=== PATIENT | female | born 1955 | race Two or more races ===

== ENCOUNTER 2017-11-19 11:00 | Inpatient (IN) | payer OTHER ==
[~2017-11-19] VITALS: Ht 160 cm; Wt 86.2 kg
[2017-11-19] MEDS ORDERED: CANASA1000 MG (13:33)
[2017-11-19] MEDS ORDERED: NEPHRONEX-SL T1 EACH PO (13:33)
[2017-11-19] MEDS ORDERED: LYRICA300 MG PO (13:34)
[2017-11-19] MEDS ORDERED: LOSARTAN POTASS25 MG PO (13:34)
[2017-11-19] MEDS ORDERED: HUMALOG100 UNIT/1 (13:35)
[2017-11-19] MEDS ORDERED: ZOCOR40 MG PO (13:35)
[2017-11-19] MEDS ORDERED: PNEU16DI2 (13:36)
[2017-11-19] MEDS ORDERED: [UNRECOGNIZED DRUG - OTHER] PO (13:36)
[2017-11-19] MEDS ORDERED: SYNTHROID75 MCG PO (13:37)
[2017-11-19] MEDS ORDERED: OMAPRAZOLE PO (13:37)
[2017-11-19] MEDS ORDERED: ZINC LOZENGES1 EACH PO (13:38)
[2017-11-19] MEDS ORDERED: [UNRECOGNIZED DRUG - OTHER] PO (13:38)
[2017-11-19] MEDS ORDERED: CLONAZEPAM0.125 MG PO (13:39)
[2017-11-19] MEDS ORDERED: CITALOPRAM HBR40 MG PO (13:39)
[2017-11-26] MEDS ORDERED: CLONAZEPAM1 MG PO (10:13)
[2017-11-26] MEDS ORDERED: AMOX1TAB12 PO (10:13)
[2017-11-26] MEDS ORDERED: PERCOCET 5-3251 EACH PO (10:13)
[2017-11-26] MEDS ORDERED: GABAPENTIN800 MG PO (10:13)
[2017-11-26] MEDS ORDERED: DOCUSATE SODIU100 MG PO (10:13)
== END 2017-11-26 14:58 | disposition home or self-care (01) | DRG 520 ==
LOC: SURH 11-25 05:00 → O/R 11-25 05:00 → SURH 11-25 07:00 → EDBD 11-25 11:00 → RECOVERY 11-25 11:00 → SURH 11-25 11:00
PROVIDERS: Orthopaedic Surgery Orthopaedic Surgery of the Spine
PROC: BW24ZZZ Computerized Tomography (CT Scan) of Chest and Abdomen (ICD-10-PCS; 2017-11-25)
PROC: 3E0F7GC Introduction of Other Therapeutic Substance into Respiratory Tract, Via Natural or Artificial Opening (ICD-10-PCS; 2017-11-25)
PROC: 00NY0ZZ Release Lumbar Spinal Cord, Open Approach (ICD-10-PCS; principal; 2017-11-25 07:00)
DX: M51.17 Intervertebral disc disorders with radiculopathy, lumbosacral region (principal); M47.27 Other spondylosis with radiculopathy, lumbosacral region; I10 Essential (primary) hypertension; E11.9 Type 2 diabetes mellitus without complications; E03.8 Other specified hypothyroidism; J44.9 Chronic obstructive pulmonary disease, unspecified

== ENCOUNTER 2022-05-13 12:30 | Inpatient (IN) | payer OTHER ==
[~2022-05-13] VITALS: Ht 157.5 cm; Wt 88.5 kg
[~2022-05-13 12:30] MED LIST: AMOX1TAB12 PO; CANASA1000 MG; CITALOPRAM HBR40 MG PO; CLONAZEPAM0.125 MG PO; CLONAZEPAM1 MG PO; DOCUSATE SODIU100 MG PO; GABAPENTIN800 MG PO; HUMALOG100 UNIT/1; LOSARTAN POTASS25 MG PO; LYRICA300 MG PO; NEPHRONEX-SL T1 EACH PO; OMAPRAZOLE PO; PERCOCET 5-3251 EACH PO; PNEU16DI2; SYNTHROID75 MCG PO; ZINC LOZENGES1 EACH PO; ZOCOR40 MG PO; [UNRECOGNIZED DRUG - OTHER] PO; [UNRECOGNIZED DRUG - OTHER] PO
[2022-05-13] MEDS ORDERED: SYNTHROID88 MCG PO (15:11)
[2022-05-13] MEDS ORDERED: FOLIC ACID1 MG PO (15:12)
[2022-05-13] MEDS ORDERED: CRESTOR20 MG PO (15:12)
[2022-05-13] MEDS ORDERED: FENOFIBR PO (15:13)
[2022-05-13] MEDS ORDERED: XANAX XR0.5 MG PO (15:13)
[2022-05-13] MEDS ORDERED: SINGULAIR10 MG PO (15:13)
[2022-05-13] MEDS ORDERED: ASACOL HD800 MG PO (15:14)
[2022-05-13] MEDS ORDERED: LANTU (15:15)
[2022-05-13] MEDS ORDERED: [UNRECOGNIZED DRUG - OTHER] (15:16)
[2022-05-14] MEDS ORDERED: COLACE100 MG PO (14:03)
[2022-05-14] MEDS ORDERED: PERCOCET 5-3251 EACH PO (14:03)
[2022-05-14] MEDS ORDERED: BACTRIM DS TAB1 EACH PO (14:03)
[2022-05-14] MEDS ORDERED: NEURONTIN800 MG PO (14:03)
[2022-05-14] MEDS ORDERED: MEDROLPACK PO (14:03)
== END 2022-05-16 13:09 | disposition home or self-care (01) | DRG 455 ==
LOC: O/R 05-14 07:04 → PED 05-14 07:04 → SURH 05-14 12:30 → PED 05-14 16:46 → SURH 05-14 21:00 → PED 05-16 13:09
PROVIDERS: ADMIT Orthopaedic Surgery Orthopaedic Surgery of the Spine; ATTEND Orthopaedic Surgery Orthopaedic Surgery of the Spine
PROC: 0SG1071 Fusion of 2 or more Lumbar Vertebral Joints with Autologous Tissue Substitute, Posterior Approach, Posterior Column, Open Approach (ICD-10-PCS; 2022-05-14)
PROC: 0ST20ZZ Resection of Lumbar Vertebral Disc, Open Approach (ICD-10-PCS; 2022-05-14)
PROC: 0QB30ZZ Excision of Left Pelvic Bone, Open Approach (ICD-10-PCS; 2022-05-14)
PROC: 07DR0ZZ Extraction of Iliac Bone Marrow, Open Approach (ICD-10-PCS; 2022-05-14)
PROC: 0SG10A0 Fusion of 2 or more Lumbar Vertebral Joints with Interbody Fusion Device, Anterior Approach, Anterior Column, Open Approach (ICD-10-PCS; principal; 2022-05-14 21:00)
DX: M43.16 Spondylolisthesis, lumbar region (principal); M48.062 Spinal stenosis, lumbar region with neurogenic claudication; M41.86 Other forms of scoliosis, lumbar region; M51.36 Other intervertebral disc degeneration, lumbar region; E11.9 Type 2 diabetes mellitus without complications

== ENCOUNTER 2024-02-11 12:00 | Inpatient (IN) | payer OTHER ==
[~2024-02-11] VITALS: Ht 157.5 cm; Wt 82.1 kg
[~2024-02-11 12:00] MED LIST changes: +ASACOL HD800 MG PO; +BACTRIM DS TAB1 EACH PO; +COLACE100 MG PO; +CRESTOR20 MG PO; +FENOFIBR PO; +FOLIC ACID1 MG PO; +LANTU; +MEDROLPACK PO; +NEURONTIN800 MG PO; +SINGULAIR10 MG PO; +SYNTHROID88 MCG PO; +XANAX XR0.5 MG PO; +[UNRECOGNIZED DRUG - OTHER]
[2024-02-17] MEDS ORDERED: 0.9 % SODIUM CHLORIDE 1,000 ML IV SCH (12:15)
[2024-02-17] MEDS ORDERED: PROMETHAZINE HCL 50 MG/ML AMPUL IM PRN (12:15)
[2024-02-17] MEDS ORDERED: ENALAPRILAT DIHYDRATE 1.25 MG/ML VIAL IV PRN (12:15)
[2024-02-17] MEDS ORDERED: PERCOCET 5-3251 EACH PO (12:20)
[2024-02-17] MEDS ORDERED: COLACE100 MG PO (12:20)
[2024-02-17] MEDS ORDERED: MEDROLPACK PO (12:20)
[2024-02-17] MEDS ORDERED: BACTRIM DS TAB1 EACH PO (12:20)
[2024-02-17] MEDS ORDERED: NEURONTIN800 MG PO (12:21)
[2024-02-17] MEDS ORDERED: GABAPENTIN100 M2 PO (12:21)
[2024-02-17] MEDS ORDERED: MORPHINE SULFATE 4 MG,MORPHINE SULFATE 2 MG IV SCH (13:00)
[2024-02-17] MEDS ORDERED: DOCUSATE SODIUM 100MG CAP PO SCH (13:00)
[2024-02-17] MEDS ORDERED: HEMOSTATIC MATRIX 1 KIT KIT TOP ONE (14:09)
[2024-02-17] MEDS ORDERED: METHYLPREDNISOLONE SOD SUCC 125 MG VIAL ONE (14:09)
[2024-02-17] MEDS ORDERED: VANCOMYCIN HCL 1,000 MG VIAL ONE (14:09)
[2024-02-17] MEDS ORDERED: IOVERSOL 320 MG/ML - 50 ML VIAL IV ONE ×2 (15:04→16:00)
[2024-02-17] MEDS ORDERED: METHYLPREDNISOLONE ACETATE 80 MG/ML VIAL IJ ONE (16:15)
[2024-02-17] MEDS ORDERED: METHYLPREDNISOLONE ACETATE 80 MG/ML VIAL ONE (16:17)
[2024-02-17] MEDS ORDERED: VANCOMYCIN HCL 1,000 MG VIAL IV ONE (16:30)
[2024-02-17] MEDS ORDERED: METHYLPREDNISOLONE SOD SUCC 125 MG VIAL IV ONE ×2 (16:30)
[2024-02-17] MEDS ORDERED: VANCOMYCIN HCL 1,000 MG VIAL IR ONE (16:30)
[2024-02-17] MEDS ORDERED: VANCOMYCIN HCL 1,000 MG VIAL SPEPROC ONE (16:30)
[2024-02-17] MEDS ORDERED: FAMOtidine 20 MG TABLET PO SCH (17:00)
[2024-02-17] MEDS ORDERED: METHYLPREDNISOLONE SOD SUCC 125 MG VIAL IV SCH (17:00)
[2024-02-17] MEDS ORDERED: MONTELUKAST SODIUM 10 MG TABLET PO SCH (17:00)
[2024-02-17] MEDS ORDERED: GABAPENTIN 800 MG TABLET PO SCH (21:00)
[2024-02-17] MEDS ORDERED: VANCOMYCIN HCL 1,000 MG VIAL IV SCH (21:00)
[2024-02-18] MEDS ORDERED: SODIUM CHLORIDE 0.45 % 1,000 ML IV SCH
[2024-02-18] MEDS ORDERED: INSULIN LISPRO 1,000 UNIT/10 ML UNITS SUBCUTANEO PRN (00:15)
[2024-02-18] MEDS ORDERED: DEXTROSE 50 % IN WATER 0.5 G/ML DISP.SYRIN IV PRN (00:15)
[2024-02-18 05:10] LABS: HEMATOCRIT 38.2 % (36.0-45.00); HEMOGLOBIN 12.7 g/dL (12.0-15.00); MEAN CORPUSCULAR HEMOGLOBIN 27.4 pg (27.00-32.0); MEAN CORPUSCULAR HGB CONC 33.3 g/dl (32.0-36.0); PLATELET COUNT 282 K/uL (150-450); RED BLOOD COUNT 4.66 M/uL (4.00-6.00); RED CELL DISTRIBUTION WIDTH 15.1 % (11.5-14.5)
[2024-02-18 05:30] LABS: CALCIUM 9.3 mg/dL (8.5-10.1); CREATININE SERUM 1.05 mg/dL (0.55-1.02); GFR 51.81; POTASSIUM 4.35 mEq/L (3.5-5.1)
[2024-02-18] MEDS ORDERED: LEVOTHYROXINE SODIUM 88 MCG TABLET PO SCH (06:00)
[2024-02-18] MEDS ORDERED: OxyCODONE HCL/APAP UD (PERCOCET) PO PRN (06:01)
[2024-02-18] MEDS ORDERED: TAMSULOSIN HCL 0.4 MG CAP PO SCH (09:00)
[2024-02-18] MEDS ORDERED: LOSARTAN POTASSIUM 25 MG TABLET PO SCH (09:00)
== END 2024-02-18 11:09 | disposition home or self-care (01) | DRG 455 ==
LOC: PED 02-17 10:07 → O/R 02-17 10:07 → SURH 02-17 12:00 → PED 02-17 18:04 → SURH 02-17 20:00 → PED 02-18 11:09
PROVIDERS: ADMIT Orthopaedic Surgery Orthopaedic Surgery of the Spine; ATTEND Orthopaedic Surgery Orthopaedic Surgery of the Spine
PROC: 0SG3071 Fusion of Lumbosacral Joint with Autologous Tissue Substitute, Posterior Approach, Posterior Column, Open Approach (ICD-10-PCS; 2024-02-17)
PROC: 0ST40ZZ Resection of Lumbosacral Disc, Open Approach (ICD-10-PCS; 2024-02-17)
PROC: 0QB30ZZ Excision of Left Pelvic Bone, Open Approach (ICD-10-PCS; 2024-02-17)
PROC: 07DR0ZZ Extraction of Iliac Bone Marrow, Open Approach (ICD-10-PCS; 2024-02-17)
PROC: 4A1104G Monitoring of Peripheral Nervous Electrical Activity, Intraoperative, Open Approach (ICD-10-PCS; 2024-02-17)
PROC: XRGD0R7 Fusion of Lumbosacral Joint using Custom-Made Anatomically Designed Interbody Fusion Device, Open Approach, New Technology Group 7 (ICD-10-PCS; principal; 2024-02-17 20:00)
DX: M48.07 Spinal stenosis, lumbosacral region (principal); M51.37 Other intervertebral disc degeneration, lumbosacral region; M54.17 Radiculopathy, lumbosacral region; I10 Essential (primary) hypertension; E11.9 Type 2 diabetes mellitus without complications; Z20.822 Contact with and (suspected) exposure to COVID-19